=== PATIENT | female | born 1975 | race Caucasian/White ===

== ENCOUNTER 2022-03-22 11:01 | Outpatient (CLI) | payer OTHER, SELFPAY | END 2022-03-22 11:02 | disposition home or self-care (01) | LOC: OP CLINIC 11:03 | PROVIDERS: Visit Provider Surgery | DX: Z12.11 Encounter for screening for malignant neoplasm of colon (principal); K63.5 Polyp of colon | CPT/HCPCS: 45385; 88305; 99153; J1200; J2250; J3010 ==

== ENCOUNTER 2023-06-03 09:59 | Outpatient (CLI) | payer OTHER, SELFPAY ==
--- NOTE | 2023-06-03 10:15 | CRLHL7_ITS ---
For Patients: As a result of the Cures Act, medical imaging exams and procedure reports are released immediately into your electronic medical record. You may view this report before your referring provider. If you have questions, please contact your health care provider. BILATERAL SCREENING MAMMOGRAM WITH COMPUTER-AIDED DETECTION AND TOMOSYNTHESIS TECHNIQUE: CC and MLO views were obtained. These mammographic images have been obtained using full-field digital technique. These mammographic images were interpreted with the benefit of computer-aided detection. Breast Tomosynthesis was used in this interpretation. COMPARISON FILM: 02/27/22, 04/30/17. FINDINGS: The breasts are heterogeneously dense, which may obscure small masses IMPRESSION: There is no radiographic evidence for malignancy. ASSESSMENT: BI-RADS Category 2: Benign RECOMMENDATION: Routine screening mammogram in 1 year. A lay language report of this examination will be provided to the patient. Phillip Suazo M.D. Diagnostic Radiologist [email or web address] MARIA INES/alison / be/Dictated by: Phillip Suazo MD @ 06/03/2023 10:56:00 AM (Electronically Signed)
== END 2023-06-03 10:00 | disposition home or self-care (01) ==
LOC: MAMMO 09:59
PROVIDERS: Visit Provider Registered Nurse
DX: Z12.31 Encounter for screening mammogram for malignant neoplasm of breast (principal); R92.2 Inconclusive mammogram
CPT/HCPCS: 77063; 77067

== ENCOUNTER 2024-06-11 13:51 | Outpatient (CLI) | payer OTHER, SELFPAY | END 2024-06-11 13:52 | disposition home or self-care (01) | PROVIDERS: Visit Provider Registered Nurse | DX: E83.51 Hypocalcemia (principal); D64.9 Anemia, unspecified; Z13.29 Encounter for screening for other suspected endocrine disorder | CPT/HCPCS: 82306; 82728; 84443 ==

== ENCOUNTER 2024-07-28 19:18 | Outpatient (CLI) | payer OTHER, SELFPAY ==
--- NOTE | 2024-07-28 19:20 | CRLHL7_ITS ---
For Patients: As a result of the Century Cures Act, medical imaging exams and procedure reports are released immediately into your electronic medical record. You may view this report before your referring provider. If you have questions, please contact your health care provider. BILATERAL SCREENING MAMMOGRAM WITH COMPUTER-AIDED DETECTION AND TOMOSYNTHESIS TECHNIQUE: CC and MLO views were obtained. These mammographic images have been obtained using full-field digital technique. These mammographic images were interpreted with the benefit of computer-aided detection. Breast Tomosynthesis was used in this interpretation. COMPARISON FILM: 06/03/23, 02/27/22, 04/30/17. FINDINGS: The breasts are heterogeneously dense, which may obscure small masses IMPRESSION: There is no radiographic evidence for malignancy. ASSESSMENT: BI-RADS Category 2: Benign RECOMMENDATION: Routine screening mammogram in 1 year. A lay language report of this examination will be provided to the patient. Phillip Suazo M.D. Diagnostic Radiologist [email or web address] MARIA INES/[place] Transcribed: 1:41 [email or web address] [email or web address]/Dictated by: Phillip Suazo MD @ 08/04/2024 12:25:00 PM (Electronically Signed)
== END 2024-07-28 19:19 | disposition home or self-care (01) ==
LOC: MAMMO 19:19
PROVIDERS: Visit Provider Registered Nurse
DX: Z12.31 Encounter for screening mammogram for malignant neoplasm of breast (principal); R92.333 Mammographic heterogeneous density, bilateral breasts
CPT/HCPCS: 77063; 77067

== ENCOUNTER 2024-07-30 22:06 | Outpatient (REF) | payer OTHER, SELFPAY ==
[2024-07-30 23:09] LABS: Chloride* 99 mmol/L (96-114)
[2024-07-30 23:10] LABS: Albumin* 4.3 g/dL (3.3-5.0); Potassium* 3.9 mmol/L (3.6-5.1); Sodium* 134 mmol/L (135-149)
[2024-07-30 23:12] LABS: Creatinine* 0.6 mg/dL (0.5-1.5); Estimated Glomerular Filt Rate 111 ml/min; Iron* 102 ug/dL (37-170)
[2024-07-30 23:13] LABS: Alanine Aminotransferase* 15 U/L (4-35); Alkaline Phosphatase* 49 U/L (40-150); Anion Gap 8 mEq/L (7-15); Aspartate Amino Transferase* 23 U/L (12-35); Bilirubin Total* 0.7 mg/dL (0.1-1.5); Blood Urea Nitrogen* 15 mg/dL (5-24); Carbon Dioxide* 27 mmol/L (20-32); Glucose* 87 mg/dL (60-115); Total Protein* 7.2 g/dL (6.0-8.3)
[2024-07-30 23:14] LABS: Calcium* 9.1 mg/dL (8.4-10.6)
[2024-07-30 23:30] LABS: Free T4 Free Thyroxine* 1.08 ng/dL (0.70-1.85)
[2024-07-30 23:35] LABS: C Reactive Protein* < 0.5 mg/dL (0.5-1.0)
[2024-07-30 23:44] LABS: Thyroid Stimulating Hormone* 0.769 uIU/mL (0.270-4.20)
[2024-07-31 00:03] LABS: Vitamin B12* 446 pg/mL (243-894)
[2024-08-01 21:11] LABS: Thyroid Peroxidase (TPO) Ab 0.3 IU/mL (0.0-9.0)
[2024-08-01 22:23] LABS: Insulin, Fasting 4 uIU/mL (3-25)
[2024-08-01 23:55] LABS: Copper, Serum/Plasma 76.8 ug/dL (80.0-155.0)
[2024-08-02 07:42] LABS: Anti-Nuclear Ab(ANA)IgG ELISA None Detected (None Detected)
[2024-08-02 10:20] LABS: Follicle Stimulating Hormone 20.9 IU/L
[2024-08-02 10:38] LABS: DHEAS 149 ug/dL (35-256)
[2024-08-02 10:46] LABS: Free T3 2.9 pg/mL (2.5-4.3)
[2024-08-04 16:52] LABS: T3 Reverse - LC-MS/MS 16.3 ng/dL (9.0-27.0); T3, Ratio (T3:RT3) 5.3 (4.2-11.0); T3, Total - LC-MS/MS 87 ng/dL (80-200)
[2024-08-06 00:18] LABS: Sex Hormone Binding Globulin 61 nmol/L (25-122); Testosterone, Free LC-MS/MS 1.6 pg/mL (1.1-5.8); Testosterone, LC-MS/MS 14 ng/dL (9-55)
[2024-08-06 02:01] LABS: Vitamin B6 (Pyridoxal 5-Phos) 69.2 nmol/L (20.0-125.0)
== END 2024-07-30 22:07 | disposition home or self-care (01) ==
LOC: NPINS 22:06
PROVIDERS: Visit Provider Clinical Nurse Specialist Women's Health
DX: R53.83 Other fatigue (principal); K59.00 Constipation, unspecified; R41.9 Unspecified symptoms and signs involving cognitive functions and awareness; N95.9 Unspecified menopausal and perimenopausal disorder
CPT/HCPCS: 80053; 82525; 82607; 82627; 83001; 83525; 83540; 84207; 84270; 84402; 84403; 84439; 84443; 84480; 84481; 84482; 84630; 86038; 86140; 86376

== ENCOUNTER 2024-11-23 10:14 | Outpatient (CLI) | payer OTHER, SELFPAY ==
[2024-11-23 13:51] LABS: Albumin* 4.2 g/dL (3.3-5.0); Chloride* 102 mmol/L (96-114); Sodium* 135 mmol/L (135-149)
[2024-11-23 13:52] LABS: Potassium* 4.3 mmol/L (3.6-5.1)
[2024-11-23 13:53] LABS: Iron* 109 ug/dL (37-170)
[2024-11-23 13:54] LABS: Alanine Aminotransferase* 18 U/L (4-35); Alkaline Phosphatase* 39 U/L (40-150); Anion Gap 8 mEq/L (7-15); Aspartate Amino Transferase* 26 U/L (12-35); Bilirubin Total* 0.8 mg/dL (0.1-1.5); Blood Urea Nitrogen* 16 mg/dL (5-24); Carbon Dioxide* 25 mmol/L (20-32); Creatinine* 0.7 mg/dL (0.5-1.5); Estimated Glomerular Filt Rate 106 ml/min; Glucose* 87 mg/dL (60-115); Total Protein* 7.1 g/dL (6.0-8.3)
[2024-11-23 13:55] LABS: Calcium* 8.8 mg/dL (8.4-10.6)
[2024-11-23 13:56] LABS: Hemoglobin A1C* 5.3 % (0-5.6)
[2024-11-23 14:12] LABS: Free T4 Free Thyroxine* 0.88 ng/dL (0.70-1.85)
[2024-11-23 14:31] LABS: Ferritin* 16.7 ng/mL (6.24-137.0)
[2024-11-23 14:46] LABS: Vitamin B12* 526 pg/mL (243-894)
[2024-11-24 19:32] LABS: Free T3 2.9 pg/mL (2.5-4.3)
[2024-11-25 02:42] LABS: Copper, Serum/Plasma 75.9 ug/dL (80.0-155.0); Zinc, Serum/Plasma 74.1 ug/dL (60.0-120.0)
[2024-11-27 06:29] LABS: Sex Hormone Binding Globulin 49 nmol/L (25-122); Testosterone, Free LC-MS/MS 19.4 pg/mL (1.1-5.8); Testosterone, LC-MS/MS 143 ng/dL (9-55)
== END 2024-11-23 10:15 | disposition home or self-care (01) ==
LOC: NPINS 10:15
PROVIDERS: Visit Provider Clinical Nurse Specialist Women's Health
DX: R79.9 Abnormal finding of blood chemistry, unspecified (principal); R53.83 Other fatigue; N95.9 Unspecified menopausal and perimenopausal disorder; R41.9 Unspecified symptoms and signs involving cognitive functions and awareness; I65.9 Occlusion and stenosis of unspecified precerebral artery
CPT/HCPCS: 80053; 82525; 82607; 82728; 83036; 83540; 84270; 84402; 84403; 84439; 84443; 84481; 84630